=== PATIENT | male | born 1945 | race African-American/Black ===

== ENCOUNTER 2024-03-16 08:12 | Day surgery (SDC) | payer OTHER ==
[2024-02-16 15:01] LABS: Absolute Basophils 0.1 K/uL (0-0.5); Absolute Eosinophils 0.2 K/uL (0-0.5); Absolute Lymphocytes (CBC) 3.5 K/uL (0.7-4.9); Absolute Monocytes 1.1 K/uL (0.1-1.3); Absolute Neutrophil 7.3 K/uL (1.8-8.0); Basophils % 1.2 % (0-1.3); Eosinophils % 1.4 % (0-4.4); Lymphocytes % 28.6 % (15.3-44.8); MCH 28.5 pg (27.0-35.0); MCHC 32.5 g/dL (32.0-36.0); MCV 87.7 fL (80-100); MPV 7.4 fL (7.6-11.3); Monocytes % 8.7 % (3.3-12.3); Neutrophils % 60.1 % (41.7-73.7); Platelets 303 thou/uL (152-406); RBC Red Blood Cell Count 4.22 M/uL (4.33-5.43); Red Cell Distribution Width 15.1 % (12.1-15.2)
[2024-02-16 15:06] LABS: PT Prothrombin Time 11.7 SECONDS (9.4-12.5); PTT, Activated Partial Thromb 29.6 SECONDS (24.3-36.9); Protime INR 1.07
[2024-02-16 15:15] LABS: Anion Gap 8.7 mEq/L (5.0-15.0); Potassium 3.7 mEq/L (3.5-5.1)
--- NOTE | 2024-02-16 15:42 | RAD REPORT ---
EXAM DESCRIPTION: Carlos Adrian (2 Views)02/16/2024 3:25 pm CLINICAL HISTORY: Preop for cardiac catheterization COMPARISON: 2014 FINDINGS: The lungs appear clear of acute infiltrate. The heart is normal size IMPRESSION: No acute abnormalities displayed
--- NOTE | 2024-02-17 12:44 | EKG ---
Test Date: 2024-02-16 Test Time: 14:43:10 [employer]alk Molding Machine Operator: ESTRELLITA MEASUREMENT RESULTS: Intervals: Rate: 64 OR: 142 QRSD: 116 QT: 442 QTc: 455 [place]: P: 68 OR: 142 QRS: -7 T: 33 INTERPRETIVE STATEMENTS: Normal sinus rhythm Normal ECG Compared to ECG 03/21/2015 06:42:33 Myocardial infarct finding no longer present Electronically Signed On 02-17-24 12:41:49 CDT by Art Skaggs
[2024-03-12 10:52] LABS: Absolute Basophils 0.1 K/uL (0-0.5); Absolute Eosinophils 0.2 K/uL (0-0.5); Absolute Lymphocytes (CBC) 2.1 K/uL (0.7-4.9); Absolute Monocytes 0.7 K/uL (0.1-1.3); Absolute Neutrophil 4.8 K/uL (1.8-8.0); Basophils % 1.1 % (0-1.3); Eosinophils % 2.9 % (0-4.4); Hematocrit 36.2 % (39.6-49.0); Lymphocytes % 26.7 % (15.3-44.8); MCH 29.3 pg (27.0-35.0); MCHC 33.2 g/dL (32.0-36.0); MCV 88.3 fL (80-100); MPV 7.5 fL (7.6-11.3); Monocytes % 8.3 % (3.3-12.3); Nucleated Red Blood Cells % 0.1 % (0-0); Platelets 298 thou/uL (152-406); Red Cell Distribution Width 14.9 % (12.1-15.2)
[2024-03-12 11:07] LABS: Anion Gap 7.5 mEq/L (5.0-15.0); Potassium 3.5 mEq/L (3.5-5.1)
[2024-03-12 12:03] LABS: PT Prothrombin Time 11.5 SECONDS (9.4-12.5); PTT, Activated Partial Thromb 34.5 SECONDS (24.3-36.9); Protime INR 1.03
--- NOTE | 2024-03-15 16:42 | EKG ---
Test Date: 2024-03-12 Test Time: 10:19:26 Life Skills Instructor: LUANN MEASUREMENT RESULTS: Intervals: Rate: 57 OK: 178 QRSD: 116 QT: 452 QTc: 439 [place]: P: 68 OK: 178 QRS: -5 T: 15 INTERPRETIVE STATEMENTS: Sinus bradycardia Otherwise normal ECG Compared to ECG 02/16/2024 14:43:10 Sinus rhythm no longer present Electronically Signed On 03-15-24 16:32:51 CDT by Art Skaggs
[2024-03-16] MEDS ORDERED: NA CHLORIDE 0.9% 500 ML ONE (08:13)
[2024-03-16] MEDS ORDERED: LIDOCAINE 1% 20 ML MDV ONE (09:34)
[2024-03-16] MEDS ORDERED: HEPA 1000U/500MLS 2,000 UNIT/1,000 ML BAG IV ONE (09:34)
[2024-03-16] MEDS ORDERED: TICAGRELOR 90 MG TABLET PO ONE (09:35)
[2024-03-16] MEDS ORDERED: MIDAZOLAM HCL 2 MG/2 ML INJ ONE (09:35)
[2024-03-16] MEDS ORDERED: FENTANYL CITR 100 MCG/2 ML ONE (09:35)
[2024-03-16] MEDS ORDERED: ATROPINE SULF 1 MG/10 ML SYR IV ONE (09:35)
[2024-03-16] MEDS ORDERED: HEPARIN 5000 UNIT/ML 1 ML VIAL ONE (09:35)
[2024-03-16] MEDS ORDERED: ASPIRIN 325 MG TAB ONE (09:36)
[2024-03-16] MEDS ORDERED: CLOPIDOGREL 75 MG TABLET ONE ×2 (09:36→09:37)
[2024-03-16] MEDS ORDERED: HEPARIN 10,000 UNIT/10 ML VIAL IV ONE (09:36)
--- NOTE | 2024-03-17 02:54 | OP ---
Date of Procedure: 03/16/2024 Surgeon: Josef Deutsch Procedures Performed: 1.Left heart catheterization. 2.Selective coronary angiogram. 3.PCI of RCA with Synergy 3.0 x 20 mm drug-eluting stent. Indications For Procedure: Shortness of breath, unstable angina, abnormal stress test. Complications: None. Access: 1.Right radial, closed by TR band. 2.Left common femoral artery, closed by Angio-Seal. Estimated Blood Loss: Less than 50 cc. Sedation Time: 30 minutes with 2 of Versed and 50 of fentanyl. Description Of Procedure: After risks, benefits, and alternatives were explained to the patient, the patient agreed to proceed with procedure and signed informed consent. The patient was brought back to the greenskeeper laborer, prepped and draped in sterile fashion. Time-out was performed. Sedation was admini stered. Next, an ultrasound-guided right radial access was obtained. We advanced [place] 4 catheter o michelet the J-wire into the LV cavity. LVEDP was obtained. Pullback did not show any gradient. Same ca theter was tried to engage the left and right coronary systems, but there was a lot of tortuosity in his innominate artery, so no selective angiogram was performed. After finding the mid RCA disease, w e tried to advance a JR4 guide over a J-wire through the radial access, but was unable to engage the right coronary artery, so left common femoral artery ultrasound-guided 6-Setswana sheath was obtained. Next, the JR4 catheter was advanced over a J-wire to the right coronary artery. Runthrough wire was passed across the lesion, pre-dilated the mid RCA lesion with an NC 2.5 mm balloon. Next, Synergy 3 .0 x 20 mm drug-eluting stent was placed across the lesion that was post-dilated with an NC 3.5 mm ba lloon. Final angiogram shows LADI flow. Catheter was removed over a J-wire. Next, a JL4 catheter w as used for selective angiogram for the left coronary system. At the end of procedure, catheter was removed over a J-wire. Sheath was removed and Angio-Seal was applied. Hemostasis was achieved. Rig ht radial sheath was removed and a TR band was applied. Hemostasis was achieved. The patient was mo rosalio back to recovery in stable condition. Findings: 1.Left main is normal. 2.LAD, mild luminal irregularities. 3.Left circ, mild luminal irregularities. 4.RCA, there is proximal to mid 70% disease, status post PCI with Synergy 3.0 x 20 mm drug-eluting s tent, then mid to distal stent is patent with diffuse 20% to 30% ISR, RPDA, RPLV, mild LI. Assessment And Plan: 1.Significant proximal to mid RCA disease, status post PCI with Synergy 3.0 x 20 mm drug-eluting yakelin nt. 2.Mild mid to distal RCA stent ISR. Plan: 1.Aspirin 81 mg daily for life. 2.Plavix 300 x1 was given in the greenskeeper laborer, continue Plavix 75 mg daily for 12 months. 3.Continue aggressive medical treatment for CAD. SCOTT/BLAKE Voice ID: [id number] Report ID: [id number]
[2024-03-18 13:08] VITALS: BP 150/82; TEMP 97.8; O2SAT 100
== END 2024-03-16 14:50 | disposition home or self-care (01) ==
LOC: CCL 08:12
PROVIDERS: ATTEND Internal Medicine Interventional Cardiology
DX: I25.110 Atherosclerotic heart disease of native coronary artery with unstable angina pectoris (principal); T82.855A Stenosis of coronary artery stent, initial encounter; I10 Essential (primary) hypertension; E78.5 Hyperlipidemia, unspecified; E11.9 Type 2 diabetes mellitus without complications; R60.9 Edema, unspecified; K21.9 Gastro-esophageal reflux disease without esophagitis; Z87.891 Personal history of nicotine dependence; Z79.82 Long term (current) use of aspirin; Z79.4 Long term (current) use of insulin; Z79.899 Other long term (current) drug therapy; Z88.8 Allergy status to other drugs, medicaments and biological substances; Z82.49 Family history of ischemic heart disease and other diseases of the circulatory system
CPT/HCPCS: 93005 ×2; 85025 ×2; 80048 ×2; 36415 ×2; 85610 ×2; 85730 ×2; 71046; 93458; 76937; C1893; C1760; Q9967; G0269; C1725; C9600; J1644; J2001; J2250; J3010; J7040; 99152; 99153; J0461